=== PATIENT | male | born 1945 | race Caucasian/White ===

== ENCOUNTER → 2020-12-11 | Outpatient (CLI) | payer BC ==
[~2020-12-11] MED LIST: VISIPAQUE 320 MG/ML, 150ML BOTTLE ONE
[2020-12-11 11:09] LABS: CREATININE 0.74 mg/dL (0.7-1.3)
== END | disposition home or self-care (01) ==
LOC: CVU 09:41
PROVIDERS: ATTEND Internal Medicine Cardiovascular Disease
DX: I65.23 Occlusion and stenosis of bilateral carotid arteries (principal); K57.30 Diverticulosis of large intestine without perforation or abscess without bleeding; N28.1 Cyst of kidney, acquired; R91.1 Solitary pulmonary nodule; I48.0 Paroxysmal atrial fibrillation; I50.23 Acute on chronic systolic (congestive) heart failure; I70.0 Atherosclerosis of aorta; I25.10 Atherosclerotic heart disease of native coronary artery without angina pectoris; M51.34 Other intervertebral disc degeneration, thoracic region
CPT/HCPCS: 36415; 71275; 74174; 82565; 93880; Q9967

== ENCOUNTER 2021-03-11 06:03 | Inpatient (IN) | payer BC, MEDICARE ==
[~2021-03-11] VITALS: Ht 175.3 cm; Wt 105.3 kg
[2021-03-11 06:28] VITALS: BP 112/60
[2021-03-11] MEDS ORDERED: ONDANSETRON 2MG/ML, 2ML IV PRN (06:30)
[2021-03-11] MEDS ORDERED: SODIUM CHLORIDE 0.9% 1,000 ML IV ONE (06:30)
[2021-03-11] MEDS ORDERED: LOSA25TA25 PO (06:37)
[2021-03-11] MEDS ORDERED: FURO-92 PO (06:37)
[2021-03-11] MEDS ORDERED: METO25TA35 PO (06:37)
[2021-03-11] MEDS ORDERED: APIX5TAB PO (06:37)
[2021-03-11] MEDS ORDERED: SPIR25TA5 PO (06:37)
[2021-03-11] MEDS ORDERED: DAPA10TA PO (06:38)
[2021-03-11] MEDS ORDERED: METF500T17 PO (06:38)
[2021-03-11] MEDS ORDERED: FLUT1BLS3 IH (06:38)
[2021-03-11 06:52] LABS: BASOPHILS % (AUTO) 1 % (0-1); EOSINOPHILS % (AUTO) 6 % (1-7); LYMPHOCYTES % (AUTO) 34 % (22-44); MEAN CORPUSCULAR HGB CONC 33.7 g/dL (33.2-36.2); MEAN PLATELET VOLUME 7.1 fL (7.4-10.4); MONOCYTES % (AUTO) 9 % (2-9); NEUTROPHILS % (AUTO) 51 % (42-75); PLATELET COUNT 141 x10^3/uL (130-400); RED BLOOD COUNT 5.47 x10^6/uL (4.38-5.82); RED CELL DISTRIBUTION WIDTH 15.7 % (9.4-14.8)
[2021-03-11 07:01] LABS: ALANINE AMINOTRANSFERASE 44 U/L (12-78); ALBUMIN 3.1 g/dL (3.4-5.0); ANION GAP 4 mmol/L (5-15); CALCIUM 9.2 mg/dL (8.5-10.1); CHLORIDE 109 mmol/L (98-107)
[2021-03-11 07:04] LABS: ALKALINE PHOSPHATASE 113 U/L (45-117); BILIRUBIN,TOTAL 0.3 mg/dL (0.2-1.0); CREATININE 0.66 mg/dL (0.7-1.3); TOTAL PROTEIN 6.5 g/dL (6.4-8.2)
[2021-03-11] MEDS ORDERED: PROTAMINE SULFATE 10 MG/ML, 5ML ONE (07:07)
[2021-03-11] MEDS ORDERED: FENTANYL PF 250 MCG/5ML ONE (07:16)
[2021-03-11] MEDS ORDERED: PROPOFOL 10 MG/ML, 20ML ONE (07:22)
[2021-03-11] MEDS ORDERED: PHENYLEPHRINE 10 MG/ML ONE (07:22)
[2021-03-11] MEDS ORDERED: SUCCINYLCHOLINE 20 MG/ML, 10ML ONE (07:22)
[2021-03-11] MEDS ORDERED: ONDANSETRON 2MG/ML, 2ML ONE (07:22)
[2021-03-11] MEDS ORDERED: CEFAZOLIN 1,000 MG ONE (07:22)
[2021-03-11] MEDS ORDERED: ROCURONIUM 10 MG/ML,10ML ONE (07:22)
[2021-03-11] MEDS ORDERED: DEXAMETHASONE 4 MG/ML, 1ML ONE (07:22)
[2021-03-11 07:23] LABS: INTERNATIONAL NORMALIZED RATIO 1.02 (0.93-1.1); PROTHROMBIN TIME 10.9 Seconds (9.6-11.5)
[2021-03-11] MEDS ORDERED: AMIODARONE 50 MG/ML, 3ML ONE (08:16)
[2021-03-11] MEDS: METOPROLOL TARTRATE 25 MG TAB PO SCH (09:00)
[2021-03-11] MEDS ORDERED: hydrALAzine 20 MG/ML, 1ML IVPush PRN (09:00)
[2021-03-11] MEDS ORDERED: GLUCAGON 1 MG IM PRN (09:00)
[2021-03-11] MEDS ORDERED: TEMPLATE NON-FORMULARY MED. (Fluticasone/Umeclidin/Vilanter (Trelegy Ellipta 100-62.5-25 IH SCH (09:00)
[2021-03-11] MEDS ORDERED: LABETALOL 20 MG/4 ML IVPush PRN (09:00)
[2021-03-11] MEDS ORDERED: TEMPLATE NON-FORMULARY MED. (Dapagliflozin Propanediol (Farxiga) 10 MG) PO SCH (09:00)
[2021-03-11] MEDS ORDERED: METOPROLOL 1 MG/ML, 5ML IVPush PRN (09:00)
[2021-03-11] MEDS ORDERED: DEXTROSE 50%, 50ML SYRINGE IVPush PRN (09:00)
[2021-03-11] MEDS ORDERED: DEXTROSE 4 GM TAB.CHEW PO PRN (09:00)
[2021-03-11] MEDS: APIXABAN 5 MG TABLET PO SCH ×2 (09:00→20:47)
[2021-03-11] MEDS ORDERED: LABETALOL 5MG/ML, 20ML ONE (09:01)
[2021-03-11] MEDS ORDERED: METOPROLOL TARTRATE 25 MG TAB ONE (09:19)
[2021-03-11 09:45] VITALS: BP 129/83
[2021-03-11] MEDS: LOSARTAN 25MG TABLET PO SCH (10:11)
[2021-03-11] MEDS: metFORMIN 500 MG TABLET PO SCH (10:11)
[2021-03-11] MEDS: FUROSEMIDE 40 MG TABLET PO SCH (10:11)
[2021-03-11] MEDS: SODIUM CHLORIDE FLUSH 10ML SYR IVF SCH ×2 (10:11→20:47)
[2021-03-11] MEDS: SPIRONOLACTONE 25 MG TABLET PO SCH (10:11)
[2021-03-11] MEDS: ACETAMINOPHEN 325 MG TABLET PO PRN (10:11)
[2021-03-11 12:55] VITALS: BP 142/89
[2021-03-11 18:47] VITALS: BP 111/81
[2021-03-11] MEDS ORDERED: AMIODARONE 300 MG in DEXTROSE 5% 100 ML IV ONE (23:00)
[2021-03-11] MEDS ORDERED: FILTER 0.22 MICRON IV PRN (23:30)
[2021-03-11] MEDS ORDERED: AMIODARONE 450 MG in DEXTROSE 5% 241 ML IV PRN (23:30)
[2021-03-11 23:31] VITALS: BP 94/70
[2021-03-12 02:45] VITALS: BP 131/81
[2021-03-12 05:47] LABS: BASOPHILS % (AUTO) 0 % (0-1); EOSINOPHILS % (AUTO) 0 % (1-7); LYMPHOCYTES % (AUTO) 14 % (22-44); MEAN CORPUSCULAR HEMOGLOBIN 30.3 pg (27.5-34.5); MEAN PLATELET VOLUME 7.5 fL (7.4-10.4); MONOCYTES % (AUTO) 8 % (2-9); NEUTROPHILS % (AUTO) 77 % (42-75); PLATELET COUNT 134 x10^3/uL (130-400); RED BLOOD COUNT 5.62 x10^6/uL (4.38-5.82); RED CELL DISTRIBUTION WIDTH 15.7 % (9.4-14.8)
[2021-03-12 06:01] LABS: ANION GAP 6 mmol/L (5-15); CALCIUM 8.5 mg/dL (8.5-10.1); CHLORIDE 107 mmol/L (98-107)
[2021-03-12 06:57] VITALS: BP 116/70
[2021-03-12] MEDS: SODIUM CHLORIDE FLUSH 10ML SYR IVF SCH ×2 (09:00→20:23)
[2021-03-12] MEDS: metFORMIN 500 MG TABLET PO SCH (09:00)
[2021-03-12] MEDS: Fluticasone/Umeclidin/Vilanter (Trelegy Ellipta 100-62.5-25) HOMEINH SCH (09:00)
[2021-03-12] MEDS: AMIODARONE 200 MG TABLET PO SCH ×2 (10:13→20:23)
[2021-03-12] MEDS: FUROSEMIDE 40 MG TABLET PO SCH (10:13)
[2021-03-12] MEDS: LOSARTAN 25MG TABLET PO SCH (10:14)
[2021-03-12] MEDS: SPIRONOLACTONE 25 MG TABLET PO SCH (10:14)
[2021-03-12] MEDS: METOPROLOL TARTRATE 25 MG TAB PO SCH (10:14)
[2021-03-12] MEDS: APIXABAN 5 MG TABLET PO SCH ×2 (10:14→20:23)
[2021-03-12] MEDS: BUDESONIDE 0.5 MG/2 ML INHA NPPB SCH ×2 (11:32→19:05)
[2021-03-12] MEDS: ALBUTEROL/IPRATROPIUM 2.5MG/0.5MG, 3 ML NPPB SCH ×2 (11:32→19:05)
[2021-03-12 12:10] VITALS: BP 122/75
[2021-03-12 19:38] VITALS: BP 118/75
[2021-03-13 01:10] VITALS: BP 131/73
[2021-03-13] MEDS: ALBUTEROL/IPRATROPIUM 2.5MG/0.5MG, 3 ML NPPB SCH ×2 (06:38→20:06)
[2021-03-13] MEDS: BUDESONIDE 0.5 MG/2 ML INHA NPPB SCH ×2 (06:38→20:06)
[2021-03-13 07:46] VITALS: BP 102/65
[2021-03-13] MEDS ORDERED: FENTANYL PF 100 MCG/2ML ONE (08:49)
[2021-03-13] MEDS ORDERED: MIDAZOLAM 1 MG/ML, 5ML ONE (08:49)
[2021-03-13] MEDS ORDERED: AMIODARONE 150 MG in DEXTROSE 5% 100 ML IV ONE (09:00)
[2021-03-13] MEDS: SODIUM CHLORIDE FLUSH 10ML SYR IVF SCH ×2 (09:22→20:26)
[2021-03-13 09:23] VITALS: BP 107/72
[2021-03-13] MEDS ORDERED: AMIODARONE 50 MG/ML, 3ML IVPush ONE (09:30)
[2021-03-13 09:37] VITALS: BP 123/82
[2021-03-13] MEDS: metFORMIN 500 MG TABLET PO SCH (09:46)
[2021-03-13] MEDS: Fluticasone/Umeclidin/Vilanter (Trelegy Ellipta 100-62.5-25) HOMEINH SCH (09:46)
[2021-03-13] MEDS ORDERED: AMIODARONE 50 MG/ML, 3ML ONE (09:51)
[2021-03-13] MEDS ORDERED: EPINEPHRINE SYRINGE 0.1 MG/ML, 10ML ONE (09:51)
[2021-03-13] MEDS: METOPROLOL TARTRATE 25 MG TAB PO SCH (09:56)
[2021-03-13] MEDS: AMIODARONE 200 MG TABLET PO SCH ×2 (09:56→20:26)
[2021-03-13] MEDS: SPIRONOLACTONE 25 MG TABLET PO SCH (09:56)
[2021-03-13] MEDS: FUROSEMIDE 40 MG TABLET PO SCH (09:56)
[2021-03-13] MEDS: APIXABAN 5 MG TABLET PO SCH ×2 (09:56→20:26)
[2021-03-13] MEDS: LOSARTAN 25MG TABLET PO SCH (09:56)
[2021-03-13 14:00] VITALS: BP 109/68
[2021-03-13] MEDS: AMIODARONE 450 MG in DEXTROSE 5% 241 ML IV PRN (18:57)
[2021-03-13 20:12] VITALS: BP 109/69
[2021-03-13] MEDS ORDERED: AMIODARONE 450 MG in DEXTROSE 5% 241 ML IV PRN (23:30)
[2021-03-14 03:03] VITALS: BP 117/74
[2021-03-14] MEDS: AMIODARONE 450 MG in DEXTROSE 5% 241 ML IV PRN (05:28)
[2021-03-14 07:41] VITALS: BP 117/68
[2021-03-14] MEDS: metFORMIN 500 MG TABLET PO SCH (07:51)
[2021-03-14] MEDS: METOPROLOL TARTRATE 25 MG TAB PO SCH (07:51)
[2021-03-14] MEDS: SPIRONOLACTONE 25 MG TABLET PO SCH (07:52)
[2021-03-14] MEDS: LOSARTAN 25MG TABLET PO SCH (07:52)
[2021-03-14] MEDS: AMIODARONE 200 MG TABLET PO SCH ×2 (07:52→21:03)
[2021-03-14] MEDS: FUROSEMIDE 40 MG TABLET PO SCH (07:52)
[2021-03-14] MEDS: APIXABAN 5 MG TABLET PO SCH ×2 (07:52→21:03)
[2021-03-14] MEDS: SODIUM CHLORIDE FLUSH 10ML SYR IVF SCH ×2 (07:53→21:03)
[2021-03-14] MEDS: Fluticasone/Umeclidin/Vilanter (Trelegy Ellipta 100-62.5-25) HOMEINH SCH (07:54)
[2021-03-14 09:05] VITALS: BP 121/75
[2021-03-14] MEDS ORDERED: AMIODARONE 200 MG TABLET PO SCH (09:30)
[2021-03-14 14:45] VITALS: BP 121/64
[2021-03-14] MEDS: ACETAMINOPHEN 325 MG TABLET PO PRN (14:52)
[2021-03-14 21:01] VITALS: BP 116/74
[2021-03-15 01:15] VITALS: BP 110/72
[2021-03-15] MEDS ORDERED: AMIO200T42 PO (08:48)
[2021-03-15] MEDS ORDERED: ACET325T26 PO (08:48)
[2021-03-15] MEDS: LOSARTAN 25MG TABLET PO SCH (10:08)
[2021-03-15] MEDS: FUROSEMIDE 40 MG TABLET PO SCH (10:08)
[2021-03-15] MEDS: APIXABAN 5 MG TABLET PO SCH (10:08)
[2021-03-15] MEDS: AMIODARONE 200 MG TABLET PO SCH (10:09)
[2021-03-15] MEDS: SPIRONOLACTONE 25 MG TABLET PO SCH (10:09)
[2021-03-15] MEDS: METOPROLOL TARTRATE 25 MG TAB PO SCH (10:09)
[2021-03-15] MEDS: SODIUM CHLORIDE FLUSH 10ML SYR IVF SCH (10:09)
[2021-03-15] MEDS: metFORMIN 500 MG TABLET PO SCH (10:09)
[2021-03-15] MEDS: Fluticasone/Umeclidin/Vilanter (Trelegy Ellipta 100-62.5-25) HOMEINH SCH (10:10)
[2021-03-15] MEDS: ACETAMINOPHEN 325 MG TABLET PO PRN (12:22)
== END 2021-03-15 13:11 | disposition home or self-care (01) | DRG 266 ==
LOC: ORIP 06:03 → 5SO 09:48
PROVIDERS: ADMIT Internal Medicine Cardiovascular Disease; ATTEND Internal Medicine Cardiovascular Disease
PROC: B3101ZZ Fluoroscopy of Thoracic Aorta using Low Osmolar Contrast (ICD-10-PCS; 2021-03-11)
PROC: B24BZZ4 Ultrasonography of Heart with Aorta, Transesophageal (ICD-10-PCS; 2021-03-11)
PROC: B51D1ZZ Fluoroscopy of Bilateral Lower Extremity Veins using Low Osmolar Contrast (ICD-10-PCS; 2021-03-11)
PROC: 5A2204Z Restoration of Cardiac Rhythm, Single (ICD-10-PCS; 2021-03-11)
PROC: 02RF38Z Replacement of Aortic Valve with Zooplastic Tissue, Percutaneous Approach (ICD-10-PCS; principal; 2021-03-11 07:30)
DX: I35.0 Nonrheumatic aortic (valve) stenosis (principal); I50.43 Acute on chronic combined systolic (congestive) and diastolic (congestive) heart failure; I42.9 Cardiomyopathy, unspecified; I97.790 Other intraoperative cardiac functional disturbances during cardiac surgery; I48.92 Unspecified atrial flutter; Z00.6 Encounter for examination for normal comparison and control in clinical research program; I48.91 Unspecified atrial fibrillation; Z20.822 Contact with and (suspected) exposure to COVID-19; I25.10 Atherosclerotic heart disease of native coronary artery without angina pectoris; Y83.8 Other surgical procedures as the cause of abnormal reaction of the patient, or of later complication, without mention of misadventure at the time of the procedure; Z79.01 Long term (current) use of anticoagulants; Z87.891 Personal history of nicotine dependence; Y92.89 Other specified places as the place of occurrence of the external cause; E11.9 Type 2 diabetes mellitus without complications
CPT/HCPCS: 33361; 36415; 92960; 93355; J7626; 80048; 80053; 85025; 85347; 85610; 86850; 86900; 86923; 87635; 93005; 93306; 93308; 94640; C1760; C1769; C1894; G0378; J0690; J1100; J2250; J2405; J2704; J2720; J3010; J7060; J0282; J0330; J2370; Q9967